=== PATIENT | male | born 1990 | race Two or more races ===

== ENCOUNTER 2024-04-08 15:11 | Emergency (ER) | payer BC ==
[~2024-04-08] VITALS: Ht 180.3 cm; Wt 102.1 kg
[2024-04-08] MEDS ORDERED: TDAP [DIPH/PERTUSSIS/TET] 0.5 ML VIAL IM ONE (15:47)
[2024-04-08] MEDS ORDERED: LIDOCAINE HCL/PF 1% 30 ML SDV ONE (15:47)
[2024-04-08] MEDS ORDERED: LIDOCAINE 1%-EPI 1:100,000 20 ML VIAL ONE (15:49)
[2024-04-08] MEDS: TDAP [DIPH/PERTUSSIS/TET] 0.5 ML VIAL IM ONE (15:55)
[2024-04-08] MEDS: LIDOCAINE HCL/PF 1% 30 ML VIAL TP ONE (16:06)
[2024-04-08 16:20] VITALS: BP 110/78; TEMP 98.2; O2SAT 99
== END 2024-04-08 16:35 | disposition home or self-care (01) ==
LOC: ER 15:20
DX: S81.812A Laceration without foreign body, left lower leg, initial encounter (principal); Z60.2 Problems related to living alone; W45.8XXA Other foreign body or object entering through skin, initial encounter; Y93.89 Activity, other specified; Y92.89 Other specified places as the place of occurrence of the external cause; Y99.8 Other external cause status
CPT/HCPCS: 12001; 90471; 90715; 99283; A6403; J3490